=== PATIENT | female | born 1975 | race Caucasian/White ===

== ENCOUNTER 2017-09-25 18:14 | Inpatient (IN) | payer OTHER ==
[~2017-09-25] VITALS: Ht 165.1 cm; Wt 73.5 kg
[~2017-09-25 18:14] MED LIST: ACCUNEB SO1.25 MG/1; ALBUTEROL INHAL17 GM IH; BACTRIM DS TAB1 EACH PO; CARISOPRODOL 3350 MG; CELEBREX 200 M200 M1; FLONASE 0.05%50 MCG; HYDROCODONE-AP1 EAC6 PO; LAMICTAL100 MG; LUVOX 50MG TABL50 MG; MONTELUKAST SOD10 MG; MS CONTIN15 MG; NEURONTIN 300300 M1; NORCO 10-325 T1 EACH; NORCO 5-325 TA1 EAC1 PO; PHENTERMINE HCL30 MG; PRILOSEC20 MG; SAPHRIS5 MG; VITAMIN D 5050000 I1; XANAX 0.5 MG0.5 M1; ZPAK PO; ZYRTEC10 MG
[2017-09-25 18:26] VITALS: BP 151/76
[2017-09-25 18:46] LABS: URINE BILIRUBIN NEGATIVE (Negative); URINE BLOOD 3+ (Negative); URINE CLARITY CLEAR; URINE COLOR YELLOW; URINE GLUCOSE-RANDOM NEGATIVE (Negative); URINE KETONES NEGATIVE (Negative); URINE LEUKOCYTES-REFLEX 1+ (Negative); URINE PROTEIN 3+ (Negative); URINE SPECIFIC GRAVITY >= 1.030 (1.005-1.030); URINE UROBILINOGEN 0.2 E.U./dl (0.2-1.0)
[2017-09-25 18:48] LABS: URINE NITRITE-REFLEX POSITIVE (Negative)
[2017-09-25 18:56] LABS: SQUAMOUS 4-10 Moderate /LPF (0-3)
[2017-09-25 19:06] LABS: CASTS None Seen /LPF (None Seen)
[2017-09-25 19:07] LABS: CRYSTALS None Seen /LPF (None Seen); URINE RBC 3-10 Few /HPF (0-2); WBC CLUMPS Few (None Seen)
[2017-09-25 19:08] LABS: BACTERIA-REFLEX >30 Many /HPF (None Seen); URINE WBC-REFLEX >25 Many /HPF (0-5)
[2017-09-25 19:09] LABS: MUCUS None Seen strn/LPF (None Seen)
[2017-09-25 19:14] LABS: ABSOLUTE BASOPHILS 0.1 thou/uL (0.0-0.2); ABSOLUTE EOSINOPHILS 0.1 thou/uL (0.0-0.7); ABSOLUTE LYMPHOCYTES 2.1 thou/uL (0.8-5.3); ABSOLUTE NEUTROPHILS 8.5 thou/uL (1.6-8.1); BASOPHILS 0.6 %; EOSINOPHILS 0.8 %; HEMATOCRIT 44.3 % (37.0-47.0); HEMOGLOBIN 14.7 gm/dL (12.0-15.0); LYMPHOCYTES 17.7 %; MCH 30.7 pg (26.0-34.0); MCHC 33.1 g/dL (28.0-37.0); MCV 92.7 fL (80.0-100.0); MONOCYTES 8.6 %; MPV 8.5 fl. (7.2-11.1); NUCLEATED RBCS 0 /100WBC; PLATELET COUNT* 273 thou/uL (150-400); POLYS 72.3 %; RBC 4.78 mil/uL (4.20-5.00); RDW-CV 13.6 % (10.5-14.5); WBC 11.8 thou/uL (4.0-11.0)
[2017-09-25 19:19] LABS: CALCIUM 8.8 mg/dL (8.5-10.1); CREATININE 0.8 mg/dL (0.6-1.3); POTASSIUM 3.7 mmol/L (3.5-5.1)
[2017-09-25 19:24] LABS: ALBUMIN 3.9 g/dL (3.4-5.0); TOTAL BILIRUBIN 0.6 mg/dL (<0.1-1.0); TOTAL PROTEIN 7.6 g/dL (6.4-8.2)
[2017-09-25 21:45] VITALS: BP 105/60
[2017-09-25 22:00] VITALS: BP 114/51
[2017-09-25 23:36] LABS: AMP/METHAMP POSITIVE (Negative); BARBITURATES Negative (Negative); BENZODIAZEPINES Negative (Negative); COCAINE Negative (Negative); METHADONE Negative (Negative); OPIATES Negative (Negative); PCP Negative (Negative); THC Negative (Negative)
[2017-09-26 07:15] VITALS: BP 90/42
[2017-09-26 09:25] LABS: ABSOLUTE BASOPHILS 0.1 thou/uL (0.0-0.2); ABSOLUTE EOSINOPHILS 0.1 thou/uL (0.0-0.7); ABSOLUTE LYMPHOCYTES 1.9 thou/uL (0.8-5.3); ABSOLUTE MONOCYTES 0.7 thou/uL (0.0-1.2); ABSOLUTE NEUTROPHILS 2.6 thou/uL (1.6-8.1); BASOPHILS 1.3 %; EOSINOPHILS 2.3 %; HEMATOCRIT 37.4 % (37.0-47.0); LYMPHOCYTES 35.3 %; MCH 31.6 pg (26.0-34.0); MCHC 33.9 g/dL (28.0-37.0); MCV 93.1 fL (80.0-100.0); MONOCYTES 12.9 %; MPV 8.4 fl. (7.2-11.1); NUCLEATED RBCS 0 /100WBC; PLATELET COUNT* 225 thou/uL (150-400); POLYS 48.2 %; RBC 4.01 mil/uL (4.20-5.00); RDW-CV 13.5 % (10.5-14.5); WBC 5.4 thou/uL (4.0-11.0)
[2017-09-26 09:29] LABS: HEMOGLOBIN 12.7 gm/dL (12.0-15.0)
[2017-09-26 09:34] LABS: CALCIUM 7.8 mg/dL (8.5-10.1); CREATININE 0.7 mg/dL (0.6-1.3); MAGNESIUM 1.9 mg/dL (1.8-2.4); POTASSIUM 4.2 mmol/L (3.5-5.1)
[2017-09-26 16:02] VITALS: BP 95/56
[2017-09-26 19:30] VITALS: BP 102/52
[2017-09-27 03:41] LABS: HEMATOCRIT 39.3 % (37.0-47.0); MCH 30.6 pg (26.0-34.0); MCHC 33.1 g/dL (28.0-37.0); MCV 92.5 fL (80.0-100.0); MPV 8.6 fl. (7.2-11.1); RBC 4.25 mil/uL (4.20-5.00); RDW-CV 13.2 % (10.5-14.5); WBC 5.7 thou/uL (4.0-11.0)
[2017-09-27 03:42] VITALS: BP 92/43
[2017-09-27 03:55] LABS: CREATININE 0.6 mg/dL (0.6-1.3); MAGNESIUM 1.7 mg/dL (1.8-2.4)
[2017-09-27 07:50] VITALS: BP 101/62
[2017-09-27 15:49] VITALS: BP 104/68
[2017-09-27 20:56] VITALS: BP 107/62
[2017-09-28 04:32] VITALS: BP 118/69
[2017-09-28 04:46] VITALS: BP 118/63
[2017-09-28] MEDS ORDERED: PROBIOTIC1 EAC1 PO ×2 (07:24→09:24)
[2017-09-28] MEDS ORDERED: CIPRO500 MG PO ×2 (07:24→09:25)
[2017-09-28] MEDS ORDERED: PHENAZOPYRIDIN100 M1 PO (07:24)
[2017-09-28 08:27] VITALS: BP 97/45
[2017-09-28] MEDS ORDERED: HYDROCODONE-AP1 EAC6 PO (09:23)
[2017-09-28] MEDS ORDERED: PYRIDIUM100 M1 PO (09:24)
[2017-09-28 09:26] VITALS: BP 97/45
== END 2017-09-28 11:00 | disposition home or self-care (01) | DRG 872 ==
LOC: M.ERS 18:14 → M.ORTHSURG 20:28 → M.TBA-ER 20:28 → M.ORTHSURG 21:21
PROVIDERS: Internal Medicine; Physician Assistant; ADMIT Internal Medicine
DX: A41.9 Sepsis, unspecified organism (principal); N12 Tubulo-interstitial nephritis, not specified as acute or chronic; N28.89 Other specified disorders of kidney and ureter; N21.0 Calculus in bladder; F15.90 Other stimulant use, unspecified, uncomplicated; M79.7 Fibromyalgia; Z88.5 Allergy status to narcotic agent; Z88.8 Allergy status to other drugs, medicaments and biological substances